=== PATIENT | female | born 1945 | race Caucasian/White ===

== ENCOUNTER → 2017-05-12 | Outpatient (CLI) | payer OTHER | LOC: BRMIMAGING 11:30 | PROVIDERS: ATTEND Family Medicine | DX: Z12.31 Encounter for screening mammogram for malignant neoplasm of breast (principal); Z85.118 Personal history of other malignant neoplasm of bronchus and lung | CPT/HCPCS: G0202 ==

== ENCOUNTER → 2018-07-21 | Outpatient (CLI) | payer OTHER | LOC: BRMIMAGING 12:48 | PROVIDERS: ATTEND Family Medicine | DX: Z12.31 Encounter for screening mammogram for malignant neoplasm of breast (principal) ==